=== PATIENT | female | born 1985 | race Caucasian/White ===

== ENCOUNTER → 2017-02-03 16:26 | Outpatient (CLI) | payer BC ==
[2013-12-09 11:10] VITALS: BMI 27.3
[~2017-02-03 16:26] MED LIST: GLYBURIDE5 M1 PO; HYDROCODONE-APA1 TAB PO; IBUPROFEN600 MG PO; PRENATAL COMPLE1 TAB PO; PRILOSEC20 MG PO
== END | disposition home or self-care (01) ==
LOC: D.LDO 16:26
DX: O24.419 Gestational diabetes mellitus in pregnancy, unspecified control (principal); Z3A.00 Weeks of gestation of pregnancy not specified

== ENCOUNTER → 2017-02-06 21:19 | Outpatient (CLI) | payer BC ==
[2013-12-09 11:10] VITALS: BMI 27.3
== END | disposition home or self-care (01) ==
LOC: D.LDO 21:19
DX: O24.913 Unspecified diabetes mellitus in pregnancy, third trimester (principal); Z3A.32 32 weeks gestation of pregnancy

== ENCOUNTER → 2017-02-10 16:56 | Outpatient (CLI) | payer BC ==
[2013-12-09 11:10] VITALS: BMI 27.3
== END | disposition home or self-care (01) ==
LOC: D.LDO 16:56
DX: O24.419 Gestational diabetes mellitus in pregnancy, unspecified control (principal); Z3A.33 33 weeks gestation of pregnancy

== ENCOUNTER → 2017-02-13 17:22 | Outpatient (CLI) | payer BC ==
[2013-12-09 11:10] VITALS: BMI 27.3
== END | disposition home or self-care (01) ==
LOC: D.LDO 17:22
DX: O24.419 Gestational diabetes mellitus in pregnancy, unspecified control (principal); Z3A.33 33 weeks gestation of pregnancy

== ENCOUNTER → 2017-02-17 20:05 | Outpatient (CLI) | payer BC ==
[2013-12-09 11:10] VITALS: BMI 27.3
== END | disposition home or self-care (01) ==
LOC: D.LDO 20:05
DX: O24.419 Gestational diabetes mellitus in pregnancy, unspecified control (principal); Z3A.34 34 weeks gestation of pregnancy

== ENCOUNTER → 2017-02-20 16:05 | Outpatient (CLI) | payer BC ==
[2013-12-09 11:10] VITALS: BMI 27.3
== END | disposition home or self-care (01) ==
LOC: D.LDO 16:05
DX: O24.119 Pre-existing type 2 diabetes mellitus, in pregnancy, unspecified trimester (principal); Z3A.34 34 weeks gestation of pregnancy

== ENCOUNTER → 2017-02-24 17:18 | Outpatient (CLI) | payer BC ==
[2013-12-09 11:10] VITALS: BMI 27.3
== END | disposition home or self-care (01) ==
LOC: D.LDO 17:18
DX: O24.419 Gestational diabetes mellitus in pregnancy, unspecified control (principal); Z3A.35 35 weeks gestation of pregnancy

== ENCOUNTER → 2017-02-27 08:47 | Outpatient (CLI) | payer BC ==
[2013-12-09 11:10] VITALS: BMI 27.3
== END | disposition home or self-care (01) ==
LOC: D.LDO 08:47
DX: O24.419 Gestational diabetes mellitus in pregnancy, unspecified control (principal); Z3A.35 35 weeks gestation of pregnancy

== ENCOUNTER → 2017-03-03 16:42 | Outpatient (CLI) | payer BC ==
[2013-12-09 11:10] VITALS: BMI 27.3
== END | disposition home or self-care (01) ==
LOC: D.LDO 16:42
DX: O24.419 Gestational diabetes mellitus in pregnancy, unspecified control (principal)

== ENCOUNTER → 2017-03-06 16:21 | Outpatient (CLI) | payer BC ==
[2013-12-09 11:10] VITALS: BMI 27.3
== END | disposition home or self-care (01) ==
LOC: D.LDO 16:21
DX: O24.913 Unspecified diabetes mellitus in pregnancy, third trimester (principal); Z3A.36 36 weeks gestation of pregnancy

== ENCOUNTER → 2017-03-10 18:26 | Outpatient (CLI) | payer BC ==
[2013-12-09 11:10] VITALS: BMI 27.3
== END | disposition home or self-care (01) ==
LOC: D.LDO 18:26
DX: O24.913 Unspecified diabetes mellitus in pregnancy, third trimester (principal); Z3A.37 37 weeks gestation of pregnancy

== ENCOUNTER → 2017-03-13 18:26 | Outpatient (CLI) | payer BC ==
[2013-12-09 11:10] VITALS: BMI 27.3
== END | disposition home or self-care (01) ==
LOC: D.LABREF 18:26 → D.LDO 18:26
DX: O24.419 Gestational diabetes mellitus in pregnancy, unspecified control (principal); Z3A.37 37 weeks gestation of pregnancy

== ENCOUNTER → 2017-03-17 17:16 | Outpatient (CLI) | payer BC ==
[2013-12-09 11:10] VITALS: BMI 27.3
== END | disposition home or self-care (01) ==
LOC: D.LDO 17:16
DX: O24.419 Gestational diabetes mellitus in pregnancy, unspecified control (principal); Z3A.38 38 weeks gestation of pregnancy

== ENCOUNTER → 2017-03-20 17:26 | Outpatient (CLI) | payer BC, MEDICAID ==
[2013-12-09 11:10] VITALS: BMI 27.3
== END | disposition home or self-care (01) ==
LOC: D.LDO 17:26
DX: O24.419 Gestational diabetes mellitus in pregnancy, unspecified control (principal); Z3A.38 38 weeks gestation of pregnancy

== ENCOUNTER 2017-03-21 09:52 | Inpatient (IN) | payer BC, MEDICAID ==
[~2017-03-21] VITALS: Ht 167.6 cm; Wt 103.4 kg
[2017-03-21] VITALS (20 sets, daily range): BP systolic 101–130; BP diastolic 55–76; Ht 167.6 cm; Wt 103.4 kg
--- NOTE | ~2017-03-21 | OP ---
PATIENT NAME: TANYA GONZALEZ MEDICAL RECORD: [id number] LOCATION:[facility]1274 ADMISSION DATE:03/21/17 SURGEON: MATEUS MOORE MD DATE OF OPERATION: 03/21/2017 PREOPERATIVE DIAGNOSES: 1. Suspected cephalopelvic disproportion. 2. A2 gestational diabetes. POSTOPERATIVE DIAGNOSES: 1. Suspected cephalopelvic disproportion. 2. A2 gestational diabetes. PROCEDURE: Primary low transverse section with vacuum assistance. SURGEON: Mateus Moore MD ANESTHESIA: Regional via spinal. INTRAVENOUS FLUIDS: Per anesthesia records. COMPLICATIONS: None apparent. FINDINGS: 1. Viable male infant. 2. Placenta delivered manually intact, 3-vessel cord noted. 3. Grossly normal-appearing adnexa bilaterally. SPECIMENS: Placenta and cord for gases. PROCEDURE IN DETAIL: The patient was taken to the operating room where regional anesthesia was achieved without difficulty. The patient was then prepped and draped in normal sterile fashion in the dorsal supine position. SCDs were on and functioning normally. A Giordano catheter had been placed and was draining freely. After the abdomen was prepped and draped, a Pfannenstiel skin incision was made and extended downwards to the underlying subcutaneous fat to the level of the fascia. This was then excised in the midline with a scalpel and extended bilaterally using the Caceres scissors. The superior and inferior aspects of the fascial incision were then grasped with Kathrine clamps times 2, tented upward, and sharply dissected from the underlying rectus muscle using the Caceres scissors and Bovie cautery. Rectus muscles were then bluntly in the midline and the pyramidalis muscle excised in its midline raphae. Peritoneum was entered sharply at the superior aspect of the incision using the Metzenbaum scissors. The peritoneal incision was then extended using the Metzenbaum scissors and gentle stretching. A bladder blade was then placed into the pelvis and bladder flap was created by excising the anterior leaf of the broad ligament across the lower uterine segment. This was then developed sharply and bluntly and the bladder blade was then replaced over the bladder flap. The scalpel was then used to make a low transverse incision, which was extended superiorly and inferiorly using the Pelosi method. At this point, the bag of water was ruptured using an Allis clamp. The head was noted to be extended and not engaged in any way. At this point, a Kiwi vacuum was used and placed on the occiput to correct head flexion, one application, no pop offs, application time approximately 10 seconds, correction to head flexion without traction on the neck. Following correction to head flexion, the vertex OPERATIVE REPORT [id number] TANYA GONZALEZ delivered followed by the body. The infant was bulb suctioned upon delivery. Cord was clamped times 2, cut, and the infant was handed to the awaiting nursery team. At this point, cord was obtained for gases. The placenta was removed manually intact and the uterus exteriorized. The uterus cleared off all clots and debris and vigorously massaged until a good uterine tone was noted. Uterine incision was then repaired with 0 Vicryl in a running-locked fashion times 2 with good hemostasis noted. Posterior cul-de-sac was then thoroughly irrigated and the uterus was replaced into the pelvis. The anterior cul-de-sac irrigated as well. Counts were correct times 2 for laps, needles and sponges and the fascia was repaired with 0 loop PDS and the skin repaired with niki. Subcutaneous tissue prior to niki was repaired with a 3-0 plain gut. The patient tolerated the procedure well, was transferred to postanesthesia recovery, stable without incident. TRANSINT:[id number] Voice Confirmation ID: [id number] DOCUMENT ID: [id number] MATEUS MOORE MD CC: [id number] DICTATION DATE: 04/05/17601 WOMEN NURSE: 04/05/17 08 DIS IN 03/23/17 [place] [id number] [place] [id number]
[~2017-03-21 09:52] MED LIST changes: -GLYBURIDE5 M1 PO; -HYDROCODONE-APA1 TAB PO; -IBUPROFEN600 MG PO; -PRENATAL COMPLE1 TAB PO
[2017-03-21] MEDS ORDERED: PRENATAL COMPLE1 TAB PO (10:39)
[2017-03-21] MEDS ORDERED: GLYBURIDE5 M1 PO (10:39)
[2017-03-21 11:32] LABS: HEMATOCRIT 37.9 % (36.0-48.0); HEMOGLOBIN 12.6 g/dL (12-16); MCH 31.7 pg (26.0-34.0); MCHC 33.2 g/dL (31.0-37.0); MCV 95.5 fL (80.0-100.0); MEAN PLATELET VOLUME 11.3 fL (7.4-10.4); RBC 3.97 10x6/uL (4.00-5.40); RDW 13.3 % (11.5-14.5)
[2017-03-22] VITALS (10 sets, daily range): BP systolic 103–125; BP diastolic 53–66
[2017-03-22 05:59] LABS: BASOPHILS 0.1 % (0-2); EOSINOPHILS 1.6 % (0-7); HEMOGLOBIN 10.2 g/dL (12-16); IMMATURE GRANULOCYTES 0.3 % (0-5); LYMPHOCYTES 17.6 % (15-50); MCH 31.3 pg (26.0-34.0); MCHC 32.9 g/dL (31.0-37.0); MCV 95.1 fL (80.0-100.0); MEAN PLATELET VOLUME 11.3 fL (7.4-10.4); MONOCYTES 4.9 % (2-11); NEUTROPHILS 75.5 % (40-80); PLATELET COUNT 160 10x3/uL (130-400); RBC 3.26 10x6/uL (4.00-5.40); RDW 13.3 % (11.5-14.5); WBC 9.2 10x3/uL (4.8-10.8)
[2017-03-23 05:19] VITALS: BP 102/54
[2017-03-23 08:45] VITALS: BP 123/60
[2017-03-23] MEDS ORDERED: HYDROCODONE-APA1 TAB PO (12:39)
[2017-03-23] MEDS ORDERED: IBUPROFEN600 MG PO (12:40)
[2017-03-25 09:19] LABS: RAPID PLASMA REAGIN Non Reactive (Non Reactive)
== END 2017-03-23 15:34 | disposition home or self-care (01) | DRG 765 ==
LOC: D.LD 09:52 → D.WS 12:00 → D.SDCHOLD 15:45 → D.LD 15:45
PROVIDERS: Obstetrics & Gynecology
PROC: 10D00Z1 Extraction of Products of Conception, Low, Open Approach (ICD-10-PCS; principal; 2017-03-21 12:00)
DX: O99.824 Streptococcus B carrier state complicating childbirth (principal); O40.3XX0 Polyhydramnios, third trimester, not applicable or unspecified; Z3A.39 39 weeks gestation of pregnancy; Z37.0 Single live birth; O24.429 Gestational diabetes mellitus in childbirth, unspecified control; O33.9 Maternal care for disproportion, unspecified